=== PATIENT | female | born 1995 | race Hispanic/Latino ===

== ENCOUNTER → 2024-10-19 | Outpatient (CLI) | payer OTHER ==
[2024-10-19 12:07] LABS: BASOPHIL % 0.7 % (0.1-1.2); EOSINOPHIL # 0.1 10^3/uL (0.0-0.2); HEMATOCRIT(ML) 41.9 % (36.0-46.0); HEMOGLOBIN 13.6 g/dL (12.0-15.0); LYMPHOCYTES # 1.54 10^3/uL1 (1.0-4.8); LYMPHOCYTES % 27.4 % (24.0-44.0); MEAN CORP HGB 29.2 pg (26-34); MEAN CORP HGB CONCENTRATION 32.5 g/dL (33-36.5); MEAN CORP VOLUME 89.9 fL (78-100); MONOCYTES # 0.3 10^3/uL (0.3-0.8); MONOCYTES % 5.9 % (5.0-12.0); NEUTROPHIL # 3.6 10^3/uL (1.8-7.7); NEUTROPHILS % 63.8 % (41.0-85.0); PLATELET COUNT 320 10^3/uL (150-400); RED BLOOD CELL 4.66 10^6/uL (4.00-5.20); RED CELL DISTRIBUTION WIDTH 12.6 % (11.5-14.5); WHITE BLOOD CELL 5.6 10^3/uL (4.5-11.0)
[2024-10-19 12:10] LABS: +ADD MANUAL DIFF(NO CHRG) NO
[2024-10-19 12:48] LABS: ALBUMIN(ML) 4.1 g/dL (3.4-5.0); ALBUMIN/GLOBULIN RATIO 1.242; ANION GAP 12.4; BUN/CREATININE RATIO 7.14 (10.0-20.0); CALCIUM 9.1 mg/dL (8.4-10.5); CARBON DIOXIDE 26.8 mmol/L (20.0-32); CREATININE SERUM 0.7 mg/dL (0.59-1.40); EST GFR, NON-AA 100.4 (>/=60); LDL/HDL RATIO 1.4; POTASSIUM 4.2 mmol/L (3.6-5.2)
== END | disposition home or self-care (01) ==
LOC: LAB 11:42
PROVIDERS: ATTEND Nurse Practitioner Family
DX: Z13.29 Encounter for screening for other suspected endocrine disorder (principal); E55.9 Vitamin D deficiency, unspecified; F41.9 Anxiety disorder, unspecified
CPT/HCPCS: 36415; 80053; 80061; 82306; 83036; 84439; 84443; 85025